=== PATIENT | female | born 1970 | race Caucasian/White ===

== ENCOUNTER 2017-12-13 12:14 | Emergency (ER) | payer OTHER ==
[~2017-12-13] VITALS: Ht 165.1 cm; Wt 81.0 kg
[~2017-12-13 12:14] MED LIST: ADVA250A; ALBU17I INH; DOXY100T; OXYC-360; otc iron
[2017-12-13 12:19] VITALS: BP 129/63; PULSE 54; RESP 16; TEMP 97.8; O2SAT 99
[2017-12-13] MEDS ORDERED: METO50TA PO (12:26)
[2017-12-13] MEDS ORDERED: FOLI400T PO (12:26)
[2017-12-13] MEDS ORDERED: B12 INJECTION IM (12:26)
[2017-12-13] MEDS ORDERED: FEXO15TA PO (12:26)
[2017-12-13] MEDS ORDERED: ADVA250A INH (12:26)
[2017-12-13] MEDS ORDERED: VITAMIN D PO (12:26)
[2017-12-13] MEDS ORDERED: ALBU6.7H INH (12:26)
[2017-12-13] MEDS ORDERED: VESI5TAB2 PO (12:26)
[2017-12-13] MEDS ORDERED: KETOROLAC TROMETHAMINE 60 MG/2 ML (IM) VIAL IM ONE (13:00)
--- NOTE | 2017-12-13 13:42 | PD ---
HPI Chief Complaint: Injury Time Seen by Provider: 12:35 Travel History International Travel<30 days: Yes Contact w/Intl Traveler<30days: Yes Name of Country Traveled to: [facility] Traveled to known affect area: No History of Present Illness HPI 47-year-old female here with left foot pain. While competing at [employer] at the [place] she twisted the foot causing immediate pain. She fell to the ground did not hit her head. No loss of consciousness. Not anticoagulated. She is unable to bear weight. She has sharp/throbbing pain which is nonradiating in the left foot. Denies altered sensation in the foot. Symptom severity is moderate. Aggravated by weightbearing slightly relieved with rest. Denies any other injuries. PFSH Past Medical History Asthma: Yes Diminished Hearing: No Respiratory: Yes (ASTHMA) Tetanus Vaccination: < 5 Years ?: Not Past Surgical History Appendectomy: Yes Gynecologic Surgery: Yes (UTERINE ABLATION, BREAST BIOPSY) Other Surgery: Yes (GANGLION CYST) Social History Alcohol Use: Yes (SOCIAL) Tobacco Use: No Substance Use: No Allergies-Medications (Allergen,Severity, Reaction): Coded Allergies: amoxicillin (Unverified Allergy, Severe, hives, 12/13/17) clavulanic acid (Unverified Allergy, Severe, hives, 12/13/17) Reported Meds & Prescriptions Reported Meds & Active Scripts Active Reported Advair Diskus Inh (Fluticasone-Salmeterol Inh) 250-50 Mcg/Blist Aer 1 Puff INH BID Rinse mouth after use. Proventil Hfa 6.7 GM Inh (Albuterol Sulfate) 90 Mcg/Act Aer 2 Puff INH Q6H PRN [B12 Injection] IM MONTHLY Kait Allergy (Fexofenadine HCl) 180 Mg Tab 180 Mg PO DAILY Vesicare (Solifenacin) 5 Mg Tab 5 Mg PO DAILY Metoprolol Tartrate 50 Mg Tab 50 Mg PO DAILY Folic Acid 0.4 Mg Tab 400 Mcg PO DAILY [Vitamin D] 50,000 PO WEEKLY Review of Systems Except as stated in HPI: all other systems reviewed are Neg General / Constitutional: No: Fever Eyes: No: Visual changes HENT: No: Headaches Cardiovascular: No: Chest Pain or Discomfort Respiratory: No: Shortness of Breath Gastrointestinal: No: Abdominal Pain Genitourinary: No: Dysuria Physical Exam Narrative GENERAL: Alert and well-appearing 39-year-old female SKIN: Warm and dry. HEAD: Normocephalic. EYES: No scleral icterus. No injection or drainage. NECK: Supple. No midline spine tenderness CARDIOVASCULAR: Regular rate and rhythm RESPIRATORY: Breath sounds equal bilaterally. No accessory muscle use. GASTROINTESTINAL: Abdomen soft, non-tender, nondistended. MUSCULOSKELETAL: No cyanosis. Left Foot: +ttp, swelling to the dorsal aspect. No obvious deformity. 2+ DP pulse. Normal sensation with sharp/dull discrimination. Good coloration. Brisk cap refill. BACK: Nontender without obvious deformity. No CVA tenderness. Data Data Last Documented VS Vital Signs Date Time Temp Pulse Resp B/P (MAP) Pulse Ox O2 Delivery O2 Flow Rate FiO2 12/13/17 12:19 97.8 54 16 129/63 (85) 99 Orders Orders Foot, Complete (Yie0svg) (12/13/17 ) Ketorolac Inj (Toradol Inj) (12/13/17 13:00) MDM Medical Decision Making Medical Screen Exam Complete: Yes Emergency Medical Condition: Yes Differential Diagnosis Metatarsal fracture, midfoot sprain, contusion Narrative Course 47-year-old female here with left foot pain after twisting injury. The extremity is neurovascularly intact. Swelling is well controlled. 2+ DP pulse. Normal sensation. Patient reports symptom relief after shot of Toradol. Xray revealed moderately displaced oblique fracture of the fourth and fifth metatarsal. Spoke with podiatry Dr. Neeraj Romero who agrees this fracture will likely need surgical repair this week. She agrees to follow-up the patient tomorrow at 11 AM. Request splint and nonweightbearing. Posterior short leg splint applied by [employer]. Extremity neurovascularly intact post splint application. Crutches for nonweightbearing. Diagnosis Primary Impression: Metatarsal fracture Qualified Codes: S92.342A - Displaced fracture of fourth metatarsal bone, left foot, initial encounter for closed fracture Referrals: Brissa Romero DPM Thursday12/14/17 at 11 AM Lety Cobb. [employer] Operator Additional Instructions: Splint must remain in place until follow-up. Crutches for ambulating. He should not bear weight. Elevate the extremity above the level of the heart. Pain medication as needed. Appointment scheduled with [facility]. Romero at 11 AM tomorrow. Office location is [address] [place] [address]. Scripts Hydrocodone-Acetaminophen ([place]) 5 Mg-325 Mg Tab 1 TAB PO Q6H Y for PAIN, #12 TAB 0 Refills Prov: Meme Ferris 12/13/17 Ketorolac (Ketorolac) 10 Mg Tab 10 MG PO Q6HR Y for PAIN for 5 Days, TAB 0 Refills Prov: Meme Ferris 12/13/17 Disposition: 01 DISCHARGE HOME Condition: Stable Meme Ferris Dec 13, 2017 13:42
--- NOTE | 2017-12-13 13:54 | RADRPT ---
EXAM DATE/TIME: 12/13/2017 13:21 [facility] COMPARISON: No previous studies available for comparison. INDICATIONS : [place], has pain left foot MEDICAL HISTORY : asthma SURGICAL HISTORY : None. ENCOUNTER: Initial ACUITY: 1 day PAIN SCORE: 8/10 LOCATION: Left foot FINDINGS: There are moderately displaced oblique fractures involving the mid diaphyseal portions of the fourth and fifth metatarsals. There is slight dorsal displacement of the distal fragments relative to the pr oximal fragments. The articulations are intact. The foot is otherwise unremarkable. Incidental note i s made of accessory ossification centers along the medial aspect of the tarsal navicular CONCLUSION: Moderately displaced oblique fractures of the fourth and fifth metatarsals Win Self MD on December 13, 2017 at 13:50 Board Certified Radiologist. This report was verified electronically.
[2017-12-13] MEDS ORDERED: NORC5TAB PO (14:37)
[2017-12-13] MEDS ORDERED: KETO10 PO (14:37)
[2017-12-15] MEDS ORDERED: CHOL1CAP34 PO (10:54)
== END 2017-12-13 14:53 | disposition home or self-care (01) ==
LOC: PHEFT 12:14
DX: S92.342A Displaced fracture of fourth metatarsal bone, left foot, initial encounter for closed fracture (principal); S92.352A Displaced fracture of fifth metatarsal bone, left foot, initial encounter for closed fracture; J45.909 Unspecified asthma, uncomplicated; X50.1XXA Overexertion from prolonged static or awkward postures, initial encounter; Y92.832 Beach as the place of occurrence of the external cause; Z79.51 Long term (current) use of inhaled steroids; Z79.899 Other long term (current) drug therapy; Z88.0 Allergy status to penicillin; Z88.8 Allergy status to other drugs, medicaments and biological substances
CPT/HCPCS: 29515; 73630; 96372; 99283; E0113; J1885

== ENCOUNTER → 2017-12-17 | Day surgery (SDC) | payer OTHER ==
[~2017-12-17] MED LIST changes: -ADVA250A; +ADVA250A INH; -ALBU17I INH; +ALBU6.7H INH; +B12 INJECTION IM; +BUPIVACAINE HCL PF 0.25% 30 ML VIAL ONE; +BUPIVACAINE HCL PF 0.5% 30 ML VIAL ONE; +CHOL1CAP34 PO; +CLINDAMYCIN PHOS 600 MG/4 ML VIAL ONE; -DOXY100T; +FEXO15TA PO; +FOLI400T PO; +KETO10 PO; +LACTATED RINGER'S 1000 ML INJ 1,000 ML ONE; +METO50TA PO; +MIDAZOLAM HCL 2 MG/2 ML VIAL ONE; +NORC5TAB PO; +ONDANSETRON HCL 4 MG/2 ML VIAL IV PUSH ONE; -OXYC-360; +PROPOFOL 200 MG/20 ML AMP IV ONE; +VESI5TAB2 PO; -otc iron
--- NOTE | 2017-12-31 07:41 | MR ---
cc: Brissa Romero DPM DATE: 12/17/2017 SURGEON: Brissa Romero DPM. SOCIAL SCIENCES LECTURER: None. PREOPERATIVE DIAGNOSIS: 1. Left fourth metatarsal shaft fracture. 2. Left fifth metatarsal shaft fraction. POSTOPERATIVE DIAGNOSES: 1. Left fourth metatarsal shaft fracture. 2. Left fifth metatarsal shaft fraction. PROCEDURE PERFORMED: Open reduction, internal fixation of left fourth and fifth metatarsal shaft fractures. ANESTHESIA: General and a local infiltrative 0.5% Marcaine plain infiltrated about the right foot, 10 mL total in reverse Mcgrath block fashion. HEMOSTASIS: Ankle tourniquet set at 250 mmHg. ESTIMATED BLOOD LOSS: 5 mL. MATERIALS: 2-0 and 3-0 Vicryl, 4-0 Vicryl, 3-0 Prolene. [employer] small bones pinch plate with corresponding 2.7 screws, [employer] 6-hole plate with corresponding screws. INJECTABLES: None. COMPLICATIONS: None. 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 She states she stepped into a pothole in the ocean and she felt her foot give out from underneath her. She immediately was brought to her knees secondary to pain and she had immediate swelling. She proceeded to the emergency department where x-rays were taken and a fourth and fifth metatarsal shaft fractures were noted to the left foot. The patient was seen in the office 2 days later as the injury occurred on Thursday. In the ED, she was placed in a posterior splint. She presented to the office with ecchymosis, swelling and pain to the left fourth and fifth metatarsal. Discussed conservative versus surgical options with the patient. The patient is active and frequently runs marathons. Discussed surgical intervention as there was significant displacement noted to the metatarsal fractures. The patient understands all risks, alternatives, and benefits associated with the procedure, as well as complications. She would like to procedure with surgical intervention. DESCRIPTION OF PROCEDURE: The patient was brought back to the operating room, placed on the operating room table in a supine position. A well-padded pneumatic ankle tourniquet was then placed around the left ankle and general anesthesia was then induced. 0.5% Marcaine plain was infiltrated about the left foot in reverse Mcgrath block fashion. The left foot was then prepped and draped in the usual sterile fashion. Attention was then directed to the dorsum of the left foot where a 3 cm incision was made in the fourth interspace. This incision was deepened through skin and subcutaneous tissue with care to retract all vital neurovascular structures. The incision was deepened through the subcutaneous tissue and attention was directed to the fifth metatarsal fracture. Copious irrigation was performed. The fracture site was identified. Fracture hematoma was evacuated with a 15 blade as well as curette. A 2 point reduction was achieved with fracture reduction clamp. Appropriate reduction was confirmed via fluoroscopy. A [employer] pinch plate was placed to the fifth metatarsal head and shaft corresponding 2.0 and 2.7 screws were placed in locking fashion. Once again, appropriate placement of the plate, as well as fracture reduction was identified on fluoroscopy. Attention was then directed to the left fourth metatarsal where once dissection was carried down to bone, there was a displaced oblique fracture with distraction and displacement in the anterior and posterior plane. Fracture reduction clamps were utilized to reduce the fracture and to restore length to the metatarsal. Appropriate reduction was confirmed via fluoroscopy. [employer] small bone plate was applied with corresponding 2.0 and 2.7 screws. Again, appropriate reduction of fracture was confirmed via fluoroscopy. Anatomic reduction was noted to the left 4th and 5th metatarsals. They were then copiously irrigated. The soft tissue was closed with 2-0 Vicryl, subcutaneous tissue was closed with 3-0 Vicryl. Skin was closed with a running subcuticular 5-0 Vicryl. Nylon and also utilized to close the skin. Steri-Strips were applied, followed by Adaptic, 4 x 4s, cast padding, Aubrey and posterior splint. The patient tolerated procedure and anesthesia well. She was transferred from the OR to PACU with vital signs stable and neurovascular status intact to the left foot. She was given the appropriate preoperative and postoperative antibiotics, as well as pain medication. The patient will followup in the office within 1 week. SAMEER Emery , 07:00 AM , 07:40 AM
== END | disposition home or self-care (01) ==
LOC: ESDC 11:13
PROVIDERS: ATTEND Podiatrist Foot & Ankle Surgery
DX: S92.342A Displaced fracture of fourth metatarsal bone, left foot, initial encounter for closed fracture (principal); S92.351A Displaced fracture of fifth metatarsal bone, right foot, initial encounter for closed fracture; I36.1 Nonrheumatic tricuspid (valve) insufficiency; I15.9 Secondary hypertension, unspecified
CPT/HCPCS: 01480; 28485; 73630; 76000; C1713; J2250; J2405; J3010; J7120